=== PATIENT | male | born 1985 | race American Indian/Alaskan Native ===

== ENCOUNTER 2016-04-01 19:37 | Emergency (ER) | payer OTHER ==
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
[2016-04-01 22:38] LABS: Urine Drugs of Abuse Note Disclamer
[2016-04-01 22:45] LABS: Bilirubin,Urine NEG (Negative); Blood,Urine NEG (Negative); Ketones,Urine NEG (Negative); Leukocyte Esterase,Urine NEG (Negative); Nitrite,Urine NEG (Negative); Protein,Urine <15 mg/dL mg/dL (Negative); Urobilinogen,Urine < 2.0 mg/dL (<2.0)
--- NOTE | 2016-04-01 23:15 | Cat Scan Report ---
FINAL REPORT PROCEDURE: CT HEAD/BRAIN WO CON TECHNIQUE: Computerized tomography of the head was performed without contrast material. HISTORY: Altered Mental Status COMPARISON: No prior studies are available for comparison. FINDINGS: Skull and scalp: Normal. Paranasal sinuses: Normal. Ventricles and subarachnoid spaces: Normal. Cerebrum: No evidence of hemorrhage, acute infarction or mass . Cerebellum and brainstem: No evidence of hemorrhage, acute infarction or mass. Vasculature: Normal. Comments: None. IMPRESSION: Normal Examination
--- NOTE | 2016-04-01 23:20 | Cat Scan Report ---
FINAL REPORT PROCEDURE: CT CERVICAL SPINE WO CON TECHNIQUE: Computerized tomography of the cervical spine was performed from the skull base to T1 without contrast material. HISTORY: ams fall COMPARISON: No prior studies are available for comparison. FINDINGS: Straightening of the cervical lordosis. Alignment is otherwise satisfactory. Odontoid process is intact. No fracture. C1-2: No significant abnormality. C2-3: No significant abnormality. C3-4: No significant abnormality. C4-5: No significant abnormality. C5-6: No significant abnormality. C6-7: No significant abnormality. C7-T1: No significant abnormality. Other: No additional findings. IMPRESSION: No fracture. Disc spaces are well preserved. Straightening of the cervical lordosis.
--- NOTE | 2016-04-01 23:28 | Cat Scan Report ---
FINAL REPORT PROCEDURE: CT ABDOMEN PELVIS WO CON TECHNIQUE: Computerized axial tomography of the abdomen and pelvis was performed without intravenous contrast. HISTORY: back pain abd pain COMPARISON: No prior studies are available for comparison. FINDINGS: Visualized lower thorax: No significant abnormality. Liver: Normal size and attenuation. Spleen: Normal size and attenuation. Gallbladder and biliary system: Normal. Pancreas: Normal. Adrenals: Normal. Kidneys: Normal. No stones or hydronephrosis. GI tract: Normal. No dilated loops of large or small bowel. Appendix is normal. Lymph nodes and mesentery: Normal. Vasculature: Normal. Bladder: Normal. Reproductive organs: Normal. Peritoneum: No free fluid. Musculoskeletal structures: No significant abnormality. Other: None. IMPRESSION: Normal examination of the abdomen and pelvis. No mass or obstruction. No solid organ injury. No fracture.
[2016-04-01 23:33] LABS: Basophils % (Auto) 0.8 % (0.0-1.8); Eosinophils % (Auto) 0.6 % (0.0-4.3); Hematocrit 43.9 % (35.5-45.6); Hemoglobin 14.8 gm/dl (11.8-15.2); Mean Corpuscular HGB Conc 34 % (32-34); Mean Corpuscular Hemoglobin 29 pg (28-32); Mean Corpuscular Volume 85 fl (84-94); Platelet Count 213 K/mm3 (140-440); Red Blood Count 5.15 M/mm3 (3.65-5.03); Red Cell Distribution Width 11.7 % (13.2-15.2); White Blood Count 8.6 K/mm3 (4.5-11.0)
[2016-04-01 23:47] LABS: Alanine Aminotransferase 14 units/L (7-56); Albumin 4.4 g/dL (3.9-5); Albumin/Globulin Ratio 1.4 %; Alkaline Phosphatase 55 units/L (35-129); BUN/Creatinine Ratio 7.77; Bilirubin,Total 0.9 mg/dL (0.1-1.2); Blood Urea Nitrogen 7 mg/dL (9-20); Calcium 9.4 mg/dL (8.4-10.2); Carbon Dioxide 23 mmol/L (22-30); Chloride 99.2 mmol/L (98-107); Creatine Kinase 114 units/L (55-170); Glucose 87 mg/dL (75-100); Potassium 3.6 mmol/L (3.6-5.0); Sodium 139 mmol/L (137-145); Total Protein 7.6 g/dL (6.3-8.2)
[2016-04-01 23:51] LABS: Anion Gap 20 mmol/L
[2016-04-02 00:01] LABS: INR 1.04 (0.87-1.13); Partial Thromboplastin Time 34.3 Sec. (24.2-36.6)
--- NOTE | 2016-04-02 00:03 | History and Physical Report ---
Medications and Allergies Allergies Allergy/AdvReac Type Severity Reaction Status Date / Time No Known Allergies Allergy Unverified 01/14/15 13:15 Home Medications Medication Instructions Recorded Confirmed Last Taken Type No Known Home Medications [No 04/01/16 04/01/16 Unknown History Reported Home Medications] Exam - Constitutional Vitals: Temp Pulse Resp BP Pulse Ox 98 F 72 19 115/76 99 04/01/16 19:55 04/01/16 22:01 04/01/16 22:01 04/01/16 22:01 04/01/16 22:01 Results - Labs CBC & Chem 7: 04/01/16 23:02 04/01/16 23:02 Labs: Abnormal lab results 04/01/16 04/01/16 04/01/16 Range/Units 23:02 23:02 23:02 RBC 5.15 H (3.65-5.03) M/mm3 RDW 11.7 L (13.2-15.2) % Lymph % (Auto) 44.4 H (13.4-35.0) % BUN 7 L (9-20) mg/dL Salicylates < 0.3 L (2.8-20.0) mg/dL
[2016-04-02 00:25] VITALS: BP 117/75
--- NOTE | 2016-04-02 00:25 | Consultation ---
History of Present Illness - Reason for Consult Consult date: 04/01/16 Requesting physician: NUBIA POLO - History of Present Illness 30 YO Male with Nicotine Dependence, currently incarcerated presents to ED for evaluation of confusion. Pt seen and evaluated in ED. Pt initially complained of seizure activity. Pt notifiet that he would require extensive testing, Pt symptoms resolved. No significant findings on physical exam. Pt cleared for discharged to [facility]. Past History Past Medical History: other (nicotine dependence) Past Surgical History: No surgical history, Other (reviewed) Social history: smoking, other (incarcerated) Family history: hypertension Medications and Allergies Allergies Allergy/AdvReac Type Severity Reaction Status Date / Time No Known Allergies Allergy Unverified 01/14/15 13:15 Home Medications Medication Instructions Recorded Confirmed Last Taken Type No Known Home Medications [No 04/01/16 04/01/16 Unknown History Reported Home Medications] Review of Systems All systems: negative Neurological: confusion, memory loss Exam - Constitutional Vitals: Temp Pulse Resp BP Pulse Ox 98 F 90 15 117/75 100 04/01/16 19:55 04/02/16 00:05 04/02/16 00:05 04/02/16 00:05 04/02/16 00:05 General appearance: Present: no acute distress, well-nourished - EENT Eyes: Present: PERRL ENT: hearing intact, clear oral mucosa - Neck Neck: Present: supple, normal ROM - Respiratory Respiratory effort: normal Respiratory: bilateral: CTA - Cardiovascular Heart Sounds: Present: S1 & S2. Absent: rub, click - Extremities Extremities: pulses symmetrical, No edema Peripheral Pulses: within normal limits - Abdominal General gastrointestinal: Present: soft, non-tender, non-distended, normal bowel sounds Male genitourinary: Present: normal - Integumentary Integumentary: Present: clear, warm, dry - Musculoskeletal Musculoskeletal: gait normal, strength equal bilaterally - Psychiatric Psychiatric: appropriate mood/affect, intact judgment & insight - Neurologic Neurologic: CNII-XII intact, moves all extremities Results - Labs CBC & Chem 7: 04/01/16 23:02 04/01/16 23:02 Labs: Abnormal lab results 04/01/16 04/01/16 04/01/16 Range/Units 23:02 23:02 23:02 RBC 5.15 H (3.65-5.03) M/mm3 RDW 11.7 L (13.2-15.2) % Lymph % (Auto) 44.4 H (13.4-35.0) % BUN 7 L (9-20) mg/dL Salicylates < 0.3 L (2.8-20.0) mg/dL Assessment and Plan - Patient Problems (1) Malingering Status: Acute Plan to address problem: Pt cleared for discharge secondary to rapid resolution of symptoms upon physical exam and interview. Pt exam and interview findings inconsistent.
--- NOTE | 2016-04-02 07:54 | XRay Report ---
CHEST ONE VIEW INDICATION: Altered mental status. COMPARISON: None similar. FINDINGS: Portable, single, frontal chest radiograph demonstrates normal cardiomediastinal silhouette. Clear lungs. Unremarkable bones. Extrinsic EKG leads. CONCLUSION: No acute disease in the chest. Thank you for the opportunity to participate in this patient's care.
== END 2016-04-02 02:09 | disposition admitted as inpatient to this hospital (09) ==
LOC: ED 19:37
DX: R41.82 Altered mental status, unspecified (principal); F17.200 Nicotine dependence, unspecified, uncomplicated
CPT/HCPCS: 36415; 70450; 71010; 72125; 74176; 80053; 80307; 81001; 82140; 82550; 83690; 84443; 84484; 85025; 85610; 85730; 93005; 93010; 99285; G0480; 80320